=== PATIENT | female | born 1980 | race American Indian/Alaskan Native ===

== ENCOUNTER 2016-10-15 20:01 | Emergency (ER) | payer MEDICAID ==
[2016-10-15 21:37] LABS: Hematocrit 39.2 % (30.3-42.9); Hemoglobin 12.8 gm/dl (10.1-14.3); Mean Corpuscular HGB Conc 33 % (30-34); Mean Corpuscular Hemoglobin 30 pg (28-32); Mean Corpuscular Volume 93 fl (79-97); Platelet Count 275 K/mm3 (140-440); Red Blood Count 4.22 M/mm3 (3.65-5.03); Red Cell Distribution Width 13.8 % (13.2-15.2); White Blood Count 10.4 K/mm3 (4.5-11.0)
[2016-10-15 21:52] LABS: Alanine Aminotransferase 15 units/L (7-56); Albumin 4.2 g/dL (3.9-5); Albumin/Globulin Ratio 1.4 %; Alkaline Phosphatase 75 units/L (35-129); Anion Gap 16 mmol/L; BUN/Creatinine Ratio 8.75; Bilirubin,Total 0.3 mg/dL (0.1-1.2); Blood Urea Nitrogen 7 mg/dL (7-17); Calcium 9.1 mg/dL (8.4-10.2); Carbon Dioxide 26 mmol/L (22-30); Chloride 98.2 mmol/L (98-107); Glucose 92 mg/dL (65-100); Lipase 45 units/L (13-60); Potassium 3.6 mmol/L (3.6-5.0); Sodium 137 mmol/L (137-145); Total Protein 7.3 g/dL (6.3-8.2)
[2016-10-15 22:10] LABS: Blastocytes % (Manual) 0 %
[2016-10-15 22:11] LABS: Basophils % (Manual) 0 % (0.0-1.8); Eosinophils % (Manual) 0 % (0.0-4.3)
[2016-10-15 22:12] LABS: Diff Status Complete; RBC Morphology Normal
[2016-10-16 01:47] LABS: Bacteria,Urine 1+ /HPF (Negative); Bilirubin,Urine NEG (Negative); Blood,Urine NEG (Negative); Ketones,Urine NEG (Negative); Leukocyte Esterase,Urine NEG (Negative); Mucus,Urine FEW /HPF; Nitrite,Urine NEG (Negative); Protein,Urine <15 mg/dL mg/dL (Negative); Urobilinogen,Urine < 2.0 mg/dL (<2.0)
[2016-10-16] MEDS ORDERED: DUONEB 0.5 MG-3 MG/3 ML SOLN IH ONE (07:08)
[2016-10-16] MEDS ORDERED: DELTASONE PO ONE (07:09)
--- NOTE | 2016-10-16 07:11 | Emergency Department Report ---
HPI - General Chief Complaint: Abdominal Pain Time Seen by Provider: 10/16/16 06:42 - HPI HPI: This is a 36-year-old Afro-[place] female presents to the emergency Department with a 24-hour history of some right upper quadrant abdominal pain, chest tightness and a mixed dry and productive cough. Patient says that she woke up yesterday with a "cold." She has a history of asthma so she tried her breathing machine a few times but it did not improve her symptoms and she started to develop some paresthesias so she came in to be seen. The patient drove herself in. She did not take anything else for symptoms prior to presentation. She also has a history of GERD but denies any history of OR, CVA , PE/DVT. No recent travel or sick contacts at home. Her primary care doctor is [facility]. ED Past Medical Hx - Past Medical History Hx GERD: Yes Hx Psychiatric Treatment: Yes (Schizophrenia) Hx Asthma: Yes Hx HIV: No Additional medical history: Carpal Tunnel Symdrome, H.pylori, - Surgical History Additional Surgical History: Hysterectomy, C-sections X4 - Social History Smoking Status: Current Every Day Smoker Substance Use Type: Alcohol - Medications Home Medications: Home Medications Medication Instructions Recorded Confirmed Last Taken Type Flonase 1 spray INNOSTRIL DAILY 03/10/15 03/19/15 03/14/15 History Flovent 220 MCG/PUFF HFA 1 inhalation INHALATION BID 03/10/15 03/19/15 03/14/15 History Omeprazole 1 tab PO DAILY 03/10/15 03/19/15 03/18/15 History Prednisone 1 tab PO DAILY 03/10/15 03/19/15 03/18/15 History Tylenol/Codeine 120-12 mg/5 ml 1 tab PO PRN PRN 03/10/15 03/19/15 03/18/15 History Levofloxacin [Levaquin TAB] 500 mg PO QDAY #10 tablet 03/19/15 Unknown Rx Omeprazole [PriLOSEC] 40 mg PO QDAY #30 cap 03/19/15 Unknown Rx metroNIDAZOLE [Flagyl TAB] 500 mg PO Q8HR #30 tab 03/19/15 Unknown Rx Naproxen [Naprosyn TAB] 500 mg PO BID PRN #14 tablet 07/11/16 Unknown Rx Ondansetron [Zofran Odt] 4 mg PO Q8H PRN #10 tab.rapdis 07/11/16 Unknown Rx predniSONE [Deltasone] 20 mg PO QDAY #5 tab 10/16/16 Unknown Rx ED Review of Systems ROS: Stated complaint: CHEST PAIN Other details as noted in HPI Comment: All other systems reviewed and negative Constitutional: denies: chills, fever Eyes: denies: eye pain, eye discharge, vision change ENT: denies: ear pain, throat pain Respiratory: cough, wheezing Cardiovascular: chest pain. denies: palpitations Gastrointestinal: abdominal pain. denies: nausea, vomiting Genitourinary: denies: urgency, dysuria, discharge Musculoskeletal: denies: back pain, joint swelling, arthralgia Skin: denies: rash, lesions Neurological: denies: headache, weakness, paresthesias Physical Exam - Physical Exam Vital Signs: Vital Signs 10/15/16 20:35 Temperature 98.5 F Pulse Rate 86 Respiratory 18 Rate Blood Pressure 121/85 Blood Pressure 121/85 [Left] O2 Sat by Pulse 100 Oximetry Physical Exam: GENERAL: The patient is well-developed well-nourished. HEENT: Normocephalic. Atraumatic. Extraocular motions are intact. Patient has moist mucous membranes. Pupils equal reactive to light bilaterally. NECK: Supple. Trachea is midline. CHEST/LUNGS: Mild wheezing throughout the chest. A dry wheezing cough heard during examination. No tachypnea or accessory muscle use. There is no respiratory distress noted. HEART/CARDIOVASCULAR: Regular. There is no tachycardia. There is no gallop rub or murmur. ABDOMEN: Abdomen is soft. There is some right upper quadrant and epigastric tenderness to palpation. No guarding rebound tenderness. No peritoneal signs. Patient has normal bowel sounds. There is no abdominal distention. SKIN: There is no rash. There is no edema. There is no diaphoresis. NEURO: The patient is awake, alert, and oriented. The patient is cooperative. The patient has no focal neurologic deficits. The patient has normal speech. MUSCULOSKELETAL: There is no tenderness or deformity. There is no limitation range of motion. There is no evidence of acute injury. Cap refill less than 2 seconds. ED Course Vital Signs 10/15/16 20:35 Temperature 98.5 F Pulse Rate 86 Respiratory 18 Rate Blood Pressure 121/85 Blood Pressure 121/85 [Left] O2 Sat by Pulse 100 Oximetry ED Medical Decision Making - Lab Data Result diagrams: 10/15/16 21:06 10/15/16 21:06 - EKG Data -: EKG Interpreted by Me EKG shows normal: sinus rhythm, axis, intervals, QRS complexes, ST-T waves Rate: normal - EKG Data When compared to previous EKG there are: previous EKG unavailable Interpretation: normal EKG - Radiology Data Radiology results: report reviewed, image reviewed interpreted by me: Chest x-ray did not show any acute process. Heart is normal shape and size. No effusions. No pneumothorax. No signs of pneumonia seen. Abdominal x-ray does not show any acute process. Right upper quadrant abdominal ultrasound is a normal examination. - Medical Decision Making 36-year-old female presents to the emergency department with some right upper quadrant abdominal discomfort and some chest tightness that goes along with a cough. On examination the patient has some mild wheezing throughout the chest and a wheezing cough heard. She is tender to palpation in the right upper quadrant but there is no guarding or peritoneal signs. Patient's labs been unremarkable including negative troponins, no leukocytosis, normal belly labs, no urinary tract infection and the patient is not . Abdominal and chest x-rays were done that did not show any acute process. Due to the location of her abdominal discomfort, a right upper quadrant ultrasound was completed that resulted as a normal examination. Patient was given a breathing treatment and a dose of steroids. Upon reevaluation she is improved. Patient is resting comfortably. Vital signs stable throughout her ED course including being afebrile, no tachypnea and no hypoxia. Patient has a primary care for follow-up at [facility]. She will be discharged with a few doses of steroids for her bronchitis. She will return to the ER with any worsening of her symptoms or any acute distress. - Differential Diagnosis bronchitis, asthma, pneumonia, OR, cholecystitis, Critical Care Time: No Critical care attestation.: If time is entered above; I have spent that time in minutes in the direct care of this critically ill patient, excluding procedure time. ED Disposition Clinical Impression: Bronchitis Abdominal pain Qualifiers: Abdominal location: right upper quadrant Qualified Code(s): R10.11 - Right upper quadrant pain Disposition: DISCHARGED TO HOME OR SELFCARE Is pt being admited?: No Condition: Stable Instructions: Abdominal Pain (ED), Acute Bronchitis (ED) Additional Instructions: Please follow-up with your primary care physician at [facility] in the next few days. Return to the emergency department with any worsening of your symptoms or any acute distress. Prescriptions: predniSONE [Deltasone] 20 mg PO QDAY #5 tab Referrals: PRIMARY CARE, [Primary Care Provider] - 3-5 Days Time of Disposition: 10:09
--- NOTE | 2016-10-16 08:29 | Ultrasound Report ---
FINAL REPORT EXAM: US ABDOMEN LIMITED HISTORY: RUQ abd pain TECHNIQUE: Right upper quadrant ultrasound PRIORS: None. FINDINGS: Examination of the gallbladder demonstrates no evidence for gallstones, distention, wall thickening, or pericholecystic fluid. No sonographic Martinez's sign is elicited. Common bile duct is normal in diameter measuring 3.9 mm. The liver is normal and homogeneous in echogenicity without focal abnormality or intrahepatic biliary dilatation. The pancreas is normal in thickness without focal abnormality or pancreatic duct dilatation. The right kidney is normal in size without calculi or hydronephrosis. The right kidney measures 11.0 cm in craniocaudal length. Aorta is normal in caliber measuring 1.4 cm in diameter in the proximal abdominal aorta. IMPRESSION: Normal right upper quadrant ultrasound.
--- NOTE | 2016-10-16 09:20 | XRay Report ---
Single view chest: History: Cough. Findings: Normal cardiomediastinal silhouette. Trachea is midline. No consolidation, pneumothorax or pleural effusion. Impression: No acute cardiopulmonary findings.
--- NOTE | 2016-10-16 09:21 | XRay Report ---
Abdomen 2 views: History: Abdominal pain. Findings: No free intraperitoneal air. No bowel distention or wall thickening. No radiopaque calculus or abnormal calcification. Stool in colon. Impression: Stool in colon. No bowel obstruction.
[2016-10-16 10:15] VITALS: BP 115/78
== END 2016-10-16 10:30 | disposition home or self-care (01) ==
LOC: ED 20:01
DX: J40 Bronchitis, not specified as acute or chronic (principal); R10.11 Right upper quadrant pain; K21.9 Gastro-esophageal reflux disease without esophagitis; F20.9 Schizophrenia, unspecified; J45.909 Unspecified asthma, uncomplicated; G56.00 Carpal tunnel syndrome, unspecified upper limb; I25.2 Old myocardial infarction; I63.9 Cerebral infarction, unspecified; F17.200 Nicotine dependence, unspecified, uncomplicated; Z86.718 Personal history of other venous thrombosis and embolism
CPT/HCPCS: 36415; 71010; 74020; 76705; 80053; 81001; 81025; 83690; 84484; 85007; 85025; 93005; 93010; 94640; 99284; J7512

== ENCOUNTER 2016-10-24 12:28 | Emergency (ER) | payer MEDICAID ==
[2016-10-24 14:04] VITALS: BP 138/107
== END 2016-10-24 17:58 | disposition left against medical advice (07) ==
LOC: ED 12:28
DX: M79.602 Pain in left arm (principal); V89.2XXA Person injured in unspecified motor-vehicle accident, traffic, initial encounter; Y93.9 Activity, unspecified; Y92.410 Unspecified street and highway as the place of occurrence of the external cause; Y99.9 Unspecified external cause status; Z53.21 Procedure and treatment not carried out due to patient leaving prior to being seen by health care provider

== ENCOUNTER 2018-02-11 19:03 | Emergency (ER) | payer MEDICAID ==
[2018-02-11 19:30] VITALS: BP 144/90
--- NOTE | 2018-02-11 20:12 | XRay Report ---
FINAL REPORT EXAM: XR FOOT 3+V LT HISTORY: Left foot pain TECHNIQUE: 3 views Left foot PRIORS: None. FINDINGS: No fracture or dislocation identified. Joint spaces are within normal limits. No erosive bony change identified. No bony lesions are identified. IMPRESSION: Negative foot series
--- NOTE | 2018-02-11 22:02 | Emergency Department Report ---
ED Lower Extremity HPI - General Chief Complaint: Extremity Injury, Lower Stated Complaint: LEFT FOOT PAIN Time Seen by Provider: 02/11/18 21:52 Source: patient Mode of arrival: Ambulatory Limitations: No Limitations - History of Present Illness Initial Comments: This is 37-year-old female here report that she is having left foot pain it's been ongoing for 2 weeks. She said it is progressively getting worse. Pain is located to plantar aspect of foot starting note heel and going up to still and she said sometimes radiating to her left knee. Denies any injury. Patient says she has a history of carpal tunnel, gout. She does have a primary care doctor who she says that some lab work and told her that this was not gout. She says she is on gabapentin for carpal tunnel but it's not helping her foot pain. Pain is tingly and aching. Pain is 8 out of 10 worse with walk-in and weightbearing better with rest. Gabapentin taking without any relief. MD Complaint: other (left foot pain) Onset/Timin -: week(s) Injury: Foot: Left (left foot pain) Type of Injury: unknown Place: home Severity: severe Severity scale (0 -10): 8 Improves With: rest Context: other (unknown) Associated Symptoms: tingling, ambulatory. denies: snap/pop sensation, swelling , numbness, unable to bear weight, able to partially bear weight Treatments Prior to Arrival: other (gabapentin) - Related Data Home Medications Medication Instructions Recorded Confirmed Last Taken Flovent 220 MCG/PUFF HFA 2 inhalation INHALATION BID 03/10/15 02/11/18 03/14/15 Gabapentin 300 mg PO QID 02/11/18 02/11/18 Unknown Indocin 25 mg PO TID 02/11/18 02/11/18 Unknown Verapamil 180 mg PO DAILY 02/11/18 02/11/18 Unknown ZyrTEC 10 mg PO DAILY 02/11/18 02/11/18 Unknown Previous Rx's Medication Instructions Recorded Last Taken Type Ibuprofen [Motrin] 600 mg PO Q8H PRN #15 tablet 02/11/18 Unknown Rx traMADol [Ultram] 50 mg PO Q4HR PRN #12 tablet 02/11/18 Unknown Rx Allergies Allergy/AdvReac Type Severity Reaction Status Date / Time latex Allergy Swelling Verified 03/19/15 10:25 oseltamivir [From Tamiflu] Allergy Hives Verified 02/11/18 19:30 penicillin Allergy Anaphylaxis Verified 03/10/15 15:08 ED Review of Systems ROS: Stated complaint: LEFT FOOT PAIN Other details as noted in HPI Constitutional: denies: chills, fever Respiratory: denies: cough, shortness of breath, SOB with exertion, SOB at rest , wheezing Cardiovascular: denies: chest pain, palpitations, edema, syncope Gastrointestinal: denies: nausea, vomiting Genitourinary: denies: urgency, dysuria, discharge Musculoskeletal: arthralgia. denies: back pain, joint swelling, myalgia Skin: denies: rash, lesions Neurological: paresthesias. denies: headache, weakness, numbness, confusion, abnormal gait, vertigo ED Past Medical Hx - Past Medical History Previous Medical History?: Yes Hx Hypertension: Yes Hx GERD: Yes Hx Psychiatric Treatment: Yes (Schizophrenia) Hx Asthma: Yes Hx HIV: No Additional medical history: Carpal Tunnel Syndrome, H.pylori,GOUT - Surgical History Past Surgical History?: Yes Additional Surgical History: Hysterectomy, C-sections X4 - Family History Family history: hypertension - Social History Smoking Status: Current Every Day Smoker Substance Use Type: None - Medications Home Medications: Home Medications Medication Instructions Recorded Confirmed Last Taken Type Flovent 220 MCG/PUFF HFA 2 inhalation INHALATION BID 03/10/15 02/11/18 03/14/15 History Gabapentin 300 mg PO QID 02/11/18 02/11/18 Unknown History Ibuprofen [Motrin] 600 mg PO Q8H PRN #15 tablet 02/11/18 Unknown Rx Indocin 25 mg PO TID 02/11/18 02/11/18 Unknown History Verapamil 180 mg PO DAILY 02/11/18 02/11/18 Unknown History ZyrTEC 10 mg PO DAILY 02/11/18 02/11/18 Unknown History traMADol [Ultram] 50 mg PO Q4HR PRN #12 tablet 02/11/18 Unknown Rx ED Physical Exam - General Limitations: No Limitations General appearance: alert, in no apparent distress - Head Head exam: Present: atraumatic, normocephalic, normal inspection - Eye Eye exam: Present: normal appearance, PERRL, EOMI Pupils: Present: normal accommodation - ENT ENT exam: Present: normal exam, normal orophraynx, mucous membranes moist - Neck Neck exam: Present: normal inspection, full ROM. Absent: tenderness, lymphadenopathy - Respiratory Respiratory exam: Present: normal lung sounds bilaterally. Absent: respiratory distress, chest wall tenderness - Cardiovascular Cardiovascular Exam: Present: regular rate, normal rhythm, normal heart sounds. Absent: systolic murmur, diastolic murmur - Extremities Exam Extremities exam: Present: normal inspection, full ROM, normal capillary refill , other (no clubbing, cyanosis or edema. Pulses + extremities and no neurovascular compromise.). Absent: tenderness, pedal edema, joint swelling, calf tenderness - Back Exam Back exam: Present: normal inspection - Neurological Exam Neurological exam: Present: alert, oriented X3, normal gait, reflexes normal, other (no focal neurological deficit). Absent: motor sensory deficit - Psychiatric Psychiatric exam: Present: normal affect, normal mood - Skin Skin exam: Present: warm, dry, intact, normal color. Absent: rash ED Course Vital Signs 02/11/18 19:23 Temperature 98.8 F Pulse Rate 74 Respiratory 18 Rate Blood Pressure 144/90 O2 Sat by Pulse 100 Oximetry - Reevaluation(s) Reevaluation #1: 02/11/18 22:43 Patient did not want much of pain in she is here by herself. Pain had subsided since she's been weighed in. X-rays negative for fracture dislocation or soft tissue swelling. ED Lower Extremity MDM - Radiology Data Radiology results: report reviewed X-ray 3 views left foot dictated by radiologist and report reviewed by myself. Please see report below. Patient: NAHOMY LIN MR#: [id number] : 1980 Acct:[id number] Age/Sex: 37 / F ADM Date: 02/11/18 Loc: ED Attending Dr: Ordering Physician: ED MD FATMATA Date of Service: 02/11/18 Procedure(s): XR foot 3+V LT Accession Number(s): [id number] cc: ED MD FATMATA Fluoro Time In Minutes: FINAL REPORT EXAM: XR FOOT 3+V LT HISTORY: Left foot pain TECHNIQUE: 3 views Left foot PRIORS: None. FINDINGS: No fracture or dislocation identified. Joint spaces are within normal limits. No erosive bony change identified. No bony lesions are identified. IMPRESSION: Negative foot series Transcribed By: LICHA Dictated By: CALVIN VELEZ MD Electronically Authenticated By: CALVIN VELEZ MD Signed Date/Time: 02/11/182007 DD/ 07 TD/TT: 02/11/182007 - Medical Decision Making Patient presents to emergency room with left foot pain for over 2 weeks. She was given incentive by myself. Left foot exam normal. Neurovascular check is normal. Patient had left foot x-ray 2 views which was dictated per radiologist report reviewed by myself. X-ray without any abnormal findings. This is communicated to patient and she voiced understanding. I discussed diagnosis and treatment plan with her and she was understanding. Her pain had subsided without any pain medication while waiting for x-ray results emergency room. She did not want any Motrin because she said that does not work and patient is here by herself. Patient was giving Zofran for the nausea and vomiting. Patient with plantar fasciitis, arthralgia left foot. Patient educated on Rice therapy, medication, diagnosis and treatment plan and she voiced understanding. For all to care asst, Prescription given to patient prior to discharge for Motrin and Ultram. Patient discharged home in stable condition, vital signs are stable and she is afebrile. She is stable. Patient instructed to follow up with her primary care in 2-3 days and care asst in 2-3 days and she voiced understanding. - Differential Diagnosis foot fracture, contusion, sprain, strain, plantar fasciitis Critical care attestation.: If time is entered above; I have spent that time in minutes in the direct care of this critically ill patient, excluding procedure time. ED Disposition Clinical Impression: Left foot pain, Plantar fasciitis of left foot Disposition: DC- TO HOME OR SELFCARE Is pt being admited?: No Does the pt Need Aspirin: No Condition: Stable Instructions: Arthralgia (ED), How to Give a Foot Massage (GEN), Plantar Fasciitis (ED), RICE Therapy (ED) Additional Instructions: Please follow up with care asst as discussed Take Ultram for severe pain but these do not drive or operate heavy machinery while taking this medication Take Motrin as an anti-inflammatory. See discharge instruction in Rice therapy Prescriptions: Ibuprofen [Motrin] 600 mg PO Q8H PRN #15 tablet PRN Reason: mild to moderate pain traMADol [Ultram] 50 mg PO Q4HR PRN #12 tablet PRN Reason: severe pain Referrals: PRIMARY CARE, [Primary Care Provider] - 02/14/18 HORTENSIA MCCARTHY DPM [Staff Physician] - 2-3 Days Forms: Work/School Release Form(ED)
== END 2018-02-11 22:39 | disposition home or self-care (01) ==
LOC: ED 19:03
DX: M72.2 Plantar fascial fibromatosis (principal); I10 Essential (primary) hypertension; K21.9 Gastro-esophageal reflux disease without esophagitis; F20.9 Schizophrenia, unspecified; J45.909 Unspecified asthma, uncomplicated; M10.9 Gout, unspecified; F17.200 Nicotine dependence, unspecified, uncomplicated; G56.00 Carpal tunnel syndrome, unspecified upper limb; Z90.710 Acquired absence of both cervix and uterus; Z91.040 Latex allergy status; Z88.0 Allergy status to penicillin; Z88.8 Allergy status to other drugs, medicaments and biological substances
CPT/HCPCS: 99283

== ENCOUNTER 2019-02-10 09:25 | Emergency (ER) | payer MEDICAID ==
[2019-02-10 10:05] LABS: Basophils % (Auto) 0.5 % (0.0-1.8); Eosinophils # (Auto) 0.1 K/mm3 (0.0-0.4); Hematocrit 38.4 % (30.3-42.9); Lymphocytes # (Auto) 2.6 K/mm3 (1.2-5.4); Lymphocytes % (Auto) 39.8 % (13.4-35.0); Mean Corpuscular HGB Conc 34 % (30-34); Mean Corpuscular Volume 95 fl (79-97); Monocytes # (Auto) 0.3 K/mm3 (0.0-0.8); Monocytes % (Auto) 4.9 % (0.0-7.3); Platelet Count 268 K/mm3 (140-440); Red Blood Count 4.06 M/mm3 (3.65-5.03); Red Cell Distribution Width 13.5 % (13.2-15.2)
[2019-02-10] MEDS ORDERED: TORADOL IV ONE (10:15)
[2019-02-10] MEDS ORDERED: NACL 0.9% 1000 ML 1,000 ML IV ONE (10:15)
[2019-02-10] MEDS ORDERED: PEPCID IV ONE (10:15)
[2019-02-10] MEDS ORDERED: ZOFRAN IV ONE (10:15)
[2019-02-10 10:26] LABS: Alanine Aminotransferase 11 units/L (7-56); Albumin 4.2 g/dL (3.9-5); BUN/Creatinine Ratio 9; Blood Urea Nitrogen 6 mg/dL (7-17); Calcium 9.3 mg/dL (8.4-10.2); Hemolysis Index 9
--- NOTE | 2019-02-10 10:30 | Emergency Department Report ---
ED Abdominal Pain HPI - General Chief Complaint: Abdominal Pain Stated Complaint: BLACK STOO/FEVER/STOMACH PAIN Time Seen by Provider: 02/10/19 10:09 Source: patient Mode of arrival: Ambulatory Limitations: No Limitations - History of Present Illness Initial Comments: Ms. Hewitt is a 38 yo female with hx of H. Pylori, HTN, asthma, GERD, HTN, who presents with abdominal pain, bloating, heartburn for several days. She has had dark stools after PeptoBismol use. Crampy diffuse pain located in the epigastric, RLQ, RLQ region. +Loose stools. She admits to noncompliance with HTN medications. PCP [facility] Personal GI specialist Dr. Hernandez REYEZ Complaint: abdominal pain -: Gradual, days(s) (2-3) Location: RUQ, RLQ, epigastric Severity: moderate Severity scale (0 -10): 7 Quality: cramping Consistency: constant Improves With: nothing Worsens With: nothing Associated Symptoms: diarrhea - Related Data Home Medications Medication Instructions Recorded Confirmed Last Taken Flovent 220 MCG/PUFF HFA 2 inhalation INHALATION BID 03/10/15 02/11/18 03/14/15 Gabapentin 300 mg PO QID 02/11/18 02/11/18 Unknown Indocin 25 mg PO TID 02/11/18 02/11/18 Unknown Verapamil 180 mg PO DAILY 02/11/18 02/11/18 Unknown ZyrTEC 10 mg PO DAILY 02/11/18 02/11/18 Unknown Previous Rx's Medication Instructions Recorded Last Taken Type Ibuprofen [Motrin] 600 mg PO Q8H PRN #15 tablet 02/11/18 Unknown Rx traMADol [Ultram] 50 mg PO Q4HR PRN #12 tablet 02/11/18 Unknown Rx amLODIPine [Norvasc] 5 mg PO DAILY 30 Days #30 tab 02/10/19 Unknown Rx Allergies Allergy/AdvReac Type Severity Reaction Status Date / Time latex Allergy Swelling Verified 03/19/15 10:25 oseltamivir [From Tamiflu] Allergy Hives Verified 02/11/18 19:30 penicillin Allergy Anaphylaxis Verified 03/10/15 15:08 ED Review of Systems ROS: Stated complaint: BLACK STOO/FEVER/STOMACH PAIN Other details as noted in HPI Comment: All other systems reviewed and negative Constitutional: denies: fever, malaise Respiratory: denies: cough Cardiovascular: denies: chest pain ED Past Medical Hx - Past Medical History Previous Medical History?: Yes Hx Hypertension: Yes Hx GERD: Yes Hx Psychiatric Treatment: Yes (Schizophrenia) Hx Asthma: Yes Hx HIV: No Additional medical history: Carpal Tunnel Syndrome, H.pylori,GOUT - Surgical History Past Surgical History?: Yes Additional Surgical History: Hysterectomy, C-sections X4 - Social History Smoking Status: Current Every Day Smoker Substance Use Type: Alcohol - Medications Home Medications: Home Medications Medication Instructions Recorded Confirmed Last Taken Type Flovent 220 MCG/PUFF HFA 2 inhalation INHALATION BID 03/10/15 02/11/18 03/14/15 History Gabapentin 300 mg PO QID 02/11/18 02/11/18 Unknown History Ibuprofen [Motrin] 600 mg PO Q8H PRN #15 tablet 02/11/18 Unknown Rx Indocin 25 mg PO TID 02/11/18 02/11/18 Unknown History Verapamil 180 mg PO DAILY 02/11/18 02/11/18 Unknown History ZyrTEC 10 mg PO DAILY 02/11/18 02/11/18 Unknown History traMADol [Ultram] 50 mg PO Q4HR PRN #12 tablet 02/11/18 Unknown Rx amLODIPine [Norvasc] 5 mg PO DAILY 30 Days #30 tab 02/10/19 Unknown Rx ED Physical Exam - General Limitations: No Limitations General appearance: alert, in no apparent distress - Head Head exam: Present: atraumatic, normocephalic - Eye Eye exam: Present: normal appearance - ENT ENT exam: Present: mucous membranes moist - Neck Neck exam: Present: normal inspection - Respiratory Respiratory exam: Present: normal lung sounds bilaterally. Absent: respiratory distress, wheezes, rales, rhonchi - Cardiovascular Cardiovascular Exam: Present: regular rate, normal rhythm, normal heart sounds. Absent: systolic murmur, diastolic murmur, rubs, gallop - GI/Abdominal GI/Abdominal exam: Present: soft, normal bowel sounds. Absent: distended, tenderness, guarding, rebound - Extremities Exam Extremities exam: Present: normal inspection - Back Exam Back exam: Present: normal inspection - Neurological Exam Neurological exam: Present: alert, oriented X3 - Psychiatric Psychiatric exam: Present: normal affect, normal mood. Absent: depressed, agitated, anxious, manic, homicidal ideation, suicidal ideation - Skin Skin exam: Present: warm, dry, intact, normal color. Absent: rash ED Course Vital Signs 02/10/19 02/10/19 02/10/19 09:31 10:21 10:44 Temperature 98.4 F 98.8 F Pulse Rate 80 78 Respiratory 20 18 18 Rate Blood Pressure 189/116 Blood Pressure 179/117 [Left] O2 Sat by Pulse 100 100 Oximetry ED Medical Decision Making - Lab Data Result diagrams: 02/10/19 09:44 02/10/19 09:44 Laboratory Results - last 24 hr 02/10/19 02/10/19 02/10/19 09:44 09:44 09:44 WBC 6.6 RBC 4.06 Hgb 13.0 Hct 38.4 MCV 95 MCH 32 MCHC 34 RDW 13.5 Plt Count 268 Lymph % (Auto) 39.8 H Hale % (Auto) 4.9 Eos % (Auto) 2.0 Baso % (Auto) 0.5 Lymph # 2.6 Hale # 0.3 Eos # 0.1 Baso # 0.0 Seg Neutrophils % 52.8 Seg Neutrophils # 3.5 Sodium 140 Potassium 3.9 Chloride 101.1 Carbon Dioxide 28 Anion Gap 15 BUN 6 L Creatinine 0.7 Estimated GFR > 60 BUN/Creatinine Ratio 9 Glucose 93 Calcium 9.3 Total Bilirubin 0.30 AST 15 ALT 11 Alkaline Phosphatase 83 Total Protein 7.4 Albumin 4.2 Albumin/Globulin Ratio 1.3 HCG, Qual Negative Urine Color Urine Turbidity Urine pH Ur Specific Clare Urine Protein Urine Glucose (UA) Urine Ketones Urine Blood Urine Nitrite Urine Bilirubin Urine Urobilinogen Ur Leukocyte Esterase Urine WBC (Auto) Urine RBC (Auto) U Epithel Cells (Auto) Urine Mucus 02/10/19 10:09 WBC RBC Hgb Hct MCV MCH MCHC RDW Plt Count Lymph % (Auto) Hale % (Auto) Eos % (Auto) Baso % (Auto) Lymph # Hale # Eos # Baso # Seg Neutrophils % Seg Neutrophils # Sodium Potassium Chloride Carbon Dioxide Anion Gap BUN Creatinine Estimated GFR BUN/Creatinine Ratio Glucose Calcium Total Bilirubin AST ALT Alkaline Phosphatase Total Protein Albumin Albumin/Globulin Ratio HCG, Qual Urine Color Yellow Urine Turbidity Clear Urine pH 6.0 Ur Specific Clare 1.009 Urine Protein <15 mg/dl Urine Glucose (UA) Neg Urine Ketones Neg Urine Blood Neg Urine Nitrite Neg Urine Bilirubin Neg Urine Urobilinogen < 2.0 Ur Leukocyte Esterase Neg Urine WBC (Auto) < 1.0 Urine RBC (Auto) 3.0 U Epithel Cells (Auto) 3.0 Urine Mucus Few - Radiology Data Radiology results: report reviewed CT abdomen and pelvis no acute process appendix not visualized - Medical Decision Making Abdominal pain without signs of peritonitis. No fever. Normal white count. No acute process on CT abdomen and pelvis without contrast. No tenderness on exam. Differential diagnosis includes IBS, peptic ulcer disease, food poisoning. She'll follow with her personal GI physician Dr. Montiel. She also follow up with her [place] physician for pressure control. Hypertension due to noncompliance. I have prescribed amlodipine. Critical care attestation.: If time is entered above; I have spent that time in minutes in the direct care of this critically ill patient, excluding procedure time. ED Disposition Clinical Impression: Hypertensive urgency, Acute abdominal pain, History of Helicobacter pylori infection Disposition: DC- TO HOME OR SELFCARE Is pt being admited?: No Does the pt Need Aspirin: No Condition: Stable Instructions: Abdominal Pain (ED), Chronic Hypertension (ED) Prescriptions: amLODIPine [Norvasc] 5 mg PO DAILY 30 Days #30 tab Referrals: JAE VALLE MD [Primary Care Provider] - 3-5 Days DALIA MONTIEL MD [Staff Physician] - 3-5 Days
[2019-02-10 10:44] LABS: Bilirubin,Urine NEG (Negative); Blood,Urine NEG (Negative); Color,Urine Yellow (Yellow); Protein,Urine <15 mg/dL mg/dL (Negative); Urobilinogen,Urine < 2.0 mg/dL (<2.0)
[2019-02-10 10:52] LABS: Mucus,Urine FEW /HPF; WBC,Urine < 1.0 /HPF (0.0-6.0)
--- NOTE | 2019-02-10 11:48 | Cat Scan Report ---
CT ABDOMEN AND PELVIS WITHOUT CONTRAST INDICATION / CLINICAL INFORMATION: abdominal bloating diarrhea RLQ pain. TECHNIQUE: Axial CT images were obtained through the abdomen and pelvis without IV contrast. All CT scans at [facility] location are performed using CT dose reduction for ALARA by means of automated exposure control. COMPARISON: None available. FINDINGS: LOWER CHEST: No significant abnormality. LIVER: No significant abnormality. GALLBLADDER: No significant abnormality. Mildly complex cystlike lesion arising from the left ovary t hat measures about 2.8 cm in diameter. BILE DUCTS: No significant abnormality. PANCREAS: No significant abnormality. SPLEEN: No significant abnormality. ADRENALS: No significant abnormality. RIGHT KIDNEY and URETER: No significant abnormality. LEFT KIDNEY and URETER: No significant abnormality. STOMACH and SMALL BOWEL: No significant abnormality. COLON: No significant abnormality. APPENDIX: Not well identified without IV contrast. PERITONEUM: No free fluid. No free air. No fluid collection. LYMPH NODES: No significant adenopathy. AORTA and ARTERIES: No significant abnormality. IVC and VEINS: No significant abnormality. URINARY BLADDER: No significant abnormality. REPRODUCTIVE ORGANS: No significant abnormality. ADDITIONAL FINDINGS: None. SKELETAL SYSTEM: No significant abnormality. IMPRESSION: 1. Appendix not well visualized. See above comments 2. No bowel obstruction 3. Complex 2.8 cm cyst arising from the left ovary. Signer Name: Hamzah Iglesias MD Signed: 02/10/2019 11:44 AM Workstation Name: [id number]
[2019-02-10 13:06] VITALS: BP 161/104
[2019-02-11 20:17] LABS: Bacteria,Urine 1+ /HPF (Negative)
== END 2019-02-10 13:08 | disposition home or self-care (01) ==
LOC: ED 09:25
DX: I16.0 Hypertensive urgency (principal); R10.11 Right upper quadrant pain; R10.13 Epigastric pain; R10.31 Right lower quadrant pain; R19.7 Diarrhea, unspecified; I10 Essential (primary) hypertension; K21.0 Gastro-esophageal reflux disease with esophagitis; F20.9 Schizophrenia, unspecified; J45.909 Unspecified asthma, uncomplicated; F17.200 Nicotine dependence, unspecified, uncomplicated; Z86.19 Personal history of other infectious and parasitic diseases; Z90.710 Acquired absence of both cervix and uterus; Z98.890 Other specified postprocedural states; Z79.899 Other long term (current) drug therapy; Z88.0 Allergy status to penicillin; Z88.8 Allergy status to other drugs, medicaments and biological substances; Z91.040 Latex allergy status
CPT/HCPCS: 36415; 74176; 80053; 81001; 84703; 85025; 96361; 96374; 96375; 99284; J1885; J2405; J7030

== ENCOUNTER 2019-02-12 12:20 | Emergency (ER) | payer OTHER, MEDICAID ==
[2019-02-12 13:03] LABS: Basophils # (Auto) 0.1 K/mm3 (0.0-0.1); Basophils % (Auto) 0.6 % (0.0-1.8); Eosinophils # (Auto) 0.1 K/mm3 (0.0-0.4); Hematocrit 43.5 % (30.3-42.9); Hemoglobin 14.8 gm/dl (10.1-14.3); Lymphocytes # (Auto) 2.9 K/mm3 (1.2-5.4); Lymphocytes % (Auto) 33.1 % (13.4-35.0); Mean Corpuscular HGB Conc 34 % (30-34); Mean Corpuscular Volume 94 fl (79-97); Monocytes # (Auto) 0.4 K/mm3 (0.0-0.8); Platelet Count 324 K/mm3 (140-440); Red Blood Count 4.65 M/mm3 (3.65-5.03); Red Cell Distribution Width 13.8 % (13.2-15.2)
[2019-02-12] MEDS ORDERED: NACL 0.9% 1000 ML 1,000 ML IV ONE (13:09)
[2019-02-12] MEDS ORDERED: MORPHINE IV ONE (13:09)
[2019-02-12] MEDS ORDERED: ZOFRAN IV ONE (13:09)
[2019-02-12 13:23] LABS: BUN/Creatinine Ratio 10; Blood Urea Nitrogen 7 mg/dL (7-17); Calcium 9.7 mg/dL (8.4-10.2); Hemolysis Index 4
--- NOTE | 2019-02-12 14:10 | Emergency Department Report ---
ED Abdominal Pain HPI - General Chief Complaint: Abdominal Pain Stated Complaint: N/A/ABD PAIN/DIZZY Time Seen by Provider: 02/12/19 12:40 Source: EMS Mode of arrival: Stretcher Limitations: No Limitations - History of Present Illness Initial Comments: 38-year-old female presents to ED with complaint of abdominal pain 1 week. Patient reports burning epigastric and right upper quadrant pain with associated nausea and vomiting. Patient was seen in the ER for same 2 days ago[address] Had negative CT scan at that time. Patient reports history of similar pain 2 years ago for which she underwent colonoscopy and upper endoscopy, and was diagnosed with H. pylori infection. Patient did follow the GI following her last ER visit, states has an appointment tomorrow with Dr. Montiel. Complaint: abdominal pain -: week(s) (1) Location: RUQ, epigastric Radiation: none Migration to: no migration Severity: moderate Severity scale (0 -10): 10 Quality: aching Consistency: intermittent Improves With: nothing Worsens With: nothing Associated Symptoms: nausea, vomiting. denies: fever - Related Data Home Medications Medication Instructions Recorded Confirmed Last Taken Flovent 220 MCG/PUFF HFA 2 inhalation INHALATION BID 03/10/15 02/11/18 03/14/15 Gabapentin 300 mg PO QID 02/11/18 02/11/18 Unknown Indocin 25 mg PO TID 02/11/18 02/11/18 Unknown Verapamil 180 mg PO DAILY 02/11/18 02/11/18 Unknown ZyrTEC 10 mg PO DAILY 02/11/18 02/11/18 Unknown Previous Rx's Medication Instructions Recorded Last Taken Type Ibuprofen [Motrin] 600 mg PO Q8H PRN #15 tablet 02/11/18 Unknown Rx traMADol [Ultram] 50 mg PO Q4HR PRN #12 tablet 02/11/18 Unknown Rx amLODIPine [Norvasc] 5 mg PO DAILY 30 Days #30 tab 02/10/19 Unknown Rx Dicyclomine [Bentyl] 20 mg PO QID PRN #20 tablet 02/12/19 Unknown Rx Ondansetron [Zofran Odt] 4 mg PO Q8HR PRN #20 tab.rapdis 02/12/19 Unknown Rx traMADol [Ultram] 50 mg PO Q6HR PRN #7 tablet 02/12/19 Unknown Rx Allergies Allergy/AdvReac Type Severity Reaction Status Date / Time latex Allergy Swelling Verified 03/19/15 10:25 oseltamivir [From Tamiflu] Allergy Hives Verified 02/11/18 19:30 penicillin Allergy Anaphylaxis Verified 03/10/15 15:08 ED Review of Systems ROS: Stated complaint: N/A/ABD PAIN/DIZZY Other details as noted in HPI Comment: All other systems reviewed and negative Constitutional: denies: chills, fever Gastrointestinal: abdominal pain, nausea, vomiting ED Past Medical Hx - Past Medical History Hx Hypertension: Yes Hx GERD: Yes Hx Psychiatric Treatment: Yes (Schizophrenia) Hx Asthma: Yes Hx HIV: No Additional medical history: Carpal Tunnel Syndrome, H.pylori,GOUT - Surgical History Additional Surgical History: Hysterectomy, C-sections X4 - Social History Smoking Status: Current Every Day Smoker Substance Use Type: Alcohol, Marijuana - Medications Home Medications: Home Medications Medication Instructions Recorded Confirmed Last Taken Type Flovent 220 MCG/PUFF HFA 2 inhalation INHALATION BID 03/10/15 02/11/18 03/14/15 History Gabapentin 300 mg PO QID 02/11/18 02/11/18 Unknown History Ibuprofen [Motrin] 600 mg PO Q8H PRN #15 tablet 02/11/18 Unknown Rx Indocin 25 mg PO TID 02/11/18 02/11/18 Unknown History Verapamil 180 mg PO DAILY 02/11/18 02/11/18 Unknown History ZyrTEC 10 mg PO DAILY 02/11/18 02/11/18 Unknown History traMADol [Ultram] 50 mg PO Q4HR PRN #12 tablet 02/11/18 Unknown Rx amLODIPine [Norvasc] 5 mg PO DAILY 30 Days #30 tab 02/10/19 Unknown Rx Dicyclomine [Bentyl] 20 mg PO QID PRN #20 tablet 02/12/19 Unknown Rx Ondansetron [Zofran Odt] 4 mg PO Q8HR PRN #20 tab.rapdis 02/12/19 Unknown Rx traMADol [Ultram] 50 mg PO Q6HR PRN #7 tablet 02/12/19 Unknown Rx ED Physical Exam - General Limitations: No Limitations General appearance: alert, in no apparent distress - Head Head exam: Present: atraumatic, normocephalic - Eye Eye exam: Present: normal appearance, PERRL, EOMI - ENT ENT exam: Present: mucous membranes moist - Neck Neck exam: Present: normal inspection - Respiratory Respiratory exam: Present: normal lung sounds bilaterally. Absent: respiratory distress - Cardiovascular Cardiovascular Exam: Present: regular rate, normal rhythm - GI/Abdominal GI/Abdominal exam: Present: soft, tenderness (moderate epigastric tenderness). Absent: distended - Extremities Exam Extremities exam: Present: normal inspection - Neurological Exam Neurological exam: Present: alert, oriented X3 - Psychiatric Psychiatric exam: Present: normal affect, normal mood - Skin Skin exam: Present: warm, dry, intact, normal color ED Course Vital Signs 02/12/19 02/12/19 02/12/19 12:47 12:53 14:39 Temperature 98.2 F Pulse Rate 85 80 Respiratory 18 22 18 Rate Blood Pressure 177/97 Blood Pressure 154/89 [Left] O2 Sat by Pulse 100 96 99 Oximetry ED Medical Decision Making - Lab Data Result diagrams: 02/12/19 12:55 02/12/19 12:55 - EKG Data -: EKG Interpreted by Sc EKG shows normal: sinus rhythm, axis, intervals, QRS complexes, ST-T waves Rate: normal - EKG Data Interpretation: no acute changes - Medical Decision Making - labs normal and unchanged from previous visit - CT normal from previous visit - GI appt tomorrow - rx given for zofran, ultram, bentyl - return precautions given - Differential Diagnosis gastritis, GERD, pancreatitis Critical care attestation.: If time is entered above; I have spent that time in minutes in the direct care of this critically ill patient, excluding procedure time. ED Disposition Clinical Impression: Acute abdominal pain Disposition: DC-01 TO HOME OR SELFCARE Is pt being admited?: No Condition: Stable Instructions: Abdominal Pain (ED) Prescriptions: Dicyclomine [Bentyl] 20 mg PO QID PRN #20 tablet PRN Reason: abdominal pain traMADol [Ultram] 50 mg PO Q6HR PRN #7 tablet PRN Reason: Pain Ondansetron [Zofran Odt] 4 mg PO Q8HR PRN #20 tab.rapdis PRN Reason: Vomiting Referrals: DALIA MONTIEL MD [Staff Physician] - 02/13/19 Time of Disposition: 14:10
[2019-02-12 14:41] VITALS: BP 154/89
== END 2019-02-12 14:54 | disposition home or self-care (01) ==
LOC: ED 12:20
DX: R10.13 Epigastric pain (principal); R10.11 Right upper quadrant pain; R11.2 Nausea with vomiting, unspecified; I10 Essential (primary) hypertension; K21.0 Gastro-esophageal reflux disease with esophagitis; F20.9 Schizophrenia, unspecified; J45.909 Unspecified asthma, uncomplicated; F17.200 Nicotine dependence, unspecified, uncomplicated; F12.90 Cannabis use, unspecified, uncomplicated; Z90.710 Acquired absence of both cervix and uterus; Z98.890 Other specified postprocedural states; Z79.899 Other long term (current) drug therapy; Z88.0 Allergy status to penicillin; Z88.8 Allergy status to other drugs, medicaments and biological substances; Z91.040 Latex allergy status
CPT/HCPCS: 36415; 80048; 83690; 85025; 93005; 93010; 96361; 96374; 96375; 99284; J2270; J2405; J7030

== ENCOUNTER 2019-10-17 10:27 | Emergency (ER) | payer MEDICAID, OTHER ==
[2019-10-17] MEDS ORDERED: ALBUTEROL 2.5 MG/3 ML NEBU IH ONE (11:36)
[2019-10-17] MEDS ORDERED: IPRATROPIUM 0.02% NEBU 2.5 ML IH ONE (11:36)
[2019-10-17] MEDS ORDERED: dexAMETHasone 20 MG/5 ML VIAL IM ONE (11:37)
--- NOTE | 2019-10-17 12:15 | Emergency Department Report ---
ED Asthma HPI - General Chief Complaint: Adult Asthma Stated Complaint: ASTHMA Time Seen by Provider: 10/17/19 11:29 Source: patient Mode of arrival: Ambulatory Limitations: No Limitations - History of Present Illness Initial Comments: This is a 39-year-old female nontoxic, well nourished in appearance, no acute signs of distress presents to the ED with c/o of acute on chronic asthma exacerbation. Patient denies any cough. Patient denies any sick contact. Patient denies any recent travels, long car, recent hospital stays. Patient denies any calf pain or calf tenderness. Patient denies any chest pain, short of breath, fever, chills, nausea, vomiting, hemoptysis, numbness, tingling, headache or stiff neck. Past medical history includes asthma. Allergies includes penicillin, latex and oseltamivir. MD Complaint: "asthma attack", wheezing -: days(s) Asthma History: childhood onset Severity: mild Context: none known Associated Symptoms: none. denies: productive cough, dry cough, fever, chest pain, hemoptysis, leg edema, syncope - Related Data Home Medications Medication Instructions Recorded Confirmed Last Taken Flovent 220 MCG/PUFF HFA 2 inhalation INHALATION BID 03/10/15 02/11/18 03/14/15 Gabapentin 300 mg PO QID 02/11/18 02/11/18 Unknown Indocin 25 mg PO TID 02/11/18 02/11/18 Unknown Verapamil 180 mg PO DAILY 02/11/18 02/11/18 Unknown ZyrTEC 10 mg PO DAILY 02/11/18 02/11/18 Unknown Previous Rx's Medication Instructions Recorded Last Taken Type Ibuprofen [Motrin] 600 mg PO Q8H PRN #15 tablet 02/11/18 Unknown Rx traMADoL [Ultram] 50 mg PO Q4HR PRN #12 tablet 02/11/18 Unknown Rx amLODIPine 5 mg PO DAILY 30 Days #30 tab 02/10/19 Unknown Rx Dicyclomine [Bentyl] 20 mg PO QID PRN #20 tablet 02/12/19 Unknown Rx Ondansetron [Zofran Odt] 4 mg PO Q8HR PRN #20 tab.rapdis 02/12/19 Unknown Rx traMADoL [Ultram] 50 mg PO Q6HR PRN #7 tablet 02/12/19 Unknown Rx Albuterol INH(or & Nicu Only) 2 puff IH QID PRN #8.5 gram 10/17/19 Unknown Rx [ProAir HFA Inhaler] Prednisone [predniSONE 10 mg 10 mg PO .TAPER #1 tab.ds.pk 10/17/19 Unknown Rx (6-Day Pack, 21 Tabs)] Allergies Allergy/AdvReac Type Severity Reaction Status Date / Time latex Allergy Swelling Verified 03/19/15 10:25 oseltamivir [From Tamiflu] Allergy Hives Verified 02/11/18 19:30 penicillin Allergy Anaphylaxis Verified 03/10/15 15:08 ED Review of Systems ROS: Stated complaint: ASTHMA Other details as noted in HPI Constitutional: denies: chills, fever Eyes: denies: eye pain, eye discharge, vision change ENT: denies: ear pain, throat pain Respiratory: shortness of breath, wheezing. denies: cough Cardiovascular: denies: chest pain, palpitations Endocrine: no symptoms reported Gastrointestinal: denies: abdominal pain, nausea, diarrhea Genitourinary: denies: urgency, dysuria, discharge Musculoskeletal: denies: back pain, joint swelling, arthralgia Skin: denies: rash, lesions Neurological: denies: headache, weakness, paresthesias Psychiatric: denies: anxiety, depression Hematological/Lymphatic: denies: easy bleeding, easy bruising ED Past Medical Hx - Past Medical History Previous Medical History?: Yes Hx Hypertension: Yes Hx GERD: Yes Hx Psychiatric Treatment: Yes (Schizophrenia) Hx Asthma: Yes Hx HIV: No Additional medical history: Carpal Tunnel Syndrome, H.pylori,GOUT - Surgical History Past Surgical History?: Yes Additional Surgical History: Hysterectomy, C-sections X4 - Social History Smoking Status: Current Every Day Smoker Substance Use Type: Alcohol, Marijuana - Medications Home Medications: Home Medications Medication Instructions Recorded Confirmed Last Taken Type Flovent 220 MCG/PUFF HFA 2 inhalation INHALATION BID 03/10/15 02/11/18 03/14/15 History Gabapentin 300 mg PO QID 02/11/18 02/11/18 Unknown History Ibuprofen [Motrin] 600 mg PO Q8H PRN #15 tablet 02/11/18 Unknown Rx Indocin 25 mg PO TID 02/11/18 02/11/18 Unknown History Verapamil 180 mg PO DAILY 02/11/18 02/11/18 Unknown History ZyrTEC 10 mg PO DAILY 02/11/18 02/11/18 Unknown History traMADoL [Ultram] 50 mg PO Q4HR PRN #12 tablet 02/11/18 Unknown Rx amLODIPine 5 mg PO DAILY 30 Days #30 tab 02/10/19 Unknown Rx Dicyclomine [Bentyl] 20 mg PO QID PRN #20 tablet 02/12/19 Unknown Rx Ondansetron [Zofran Odt] 4 mg PO Q8HR PRN #20 tab.rapdis 02/12/19 Unknown Rx traMADoL [Ultram] 50 mg PO Q6HR PRN #7 tablet 02/12/19 Unknown Rx Albuterol INH(or & Nicu Only) 2 puff IH QID PRN #8.5 gram 10/17/19 Unknown Rx [ProAir HFA Inhaler] Prednisone [predniSONE 10 mg 10 mg PO .TAPER #1 tab.ds.pk 10/17/19 Unknown Rx (6-Day Pack, 21 Tabs)] ED Physical Exam - General Limitations: No Limitations General appearance: alert, in no apparent distress - Head Head exam: Present: atraumatic, normocephalic - Neck Neck exam: Present: normal inspection, full ROM. Absent: tenderness, meningismus, lymphadenopathy - Respiratory Respiratory exam: Present: wheezes (diffuse). Absent: respiratory distress, rales, rhonchi, stridor, chest wall tenderness, accessory muscle use, decreased breath sounds, prolonged expiratory - Cardiovascular Cardiovascular Exam: Present: regular rate, normal rhythm, normal heart sounds. Absent: irregular rhythm, systolic murmur, diastolic murmur, rubs, gallop - Extremities Exam Extremities exam: Present: normal inspection, full ROM - Back Exam Back exam: Present: normal inspection, full ROM - Neurological Exam Neurological exam: Present: alert, oriented X3, normal gait - Psychiatric Psychiatric exam: Present: normal affect, normal mood - Skin Skin exam: Present: warm, dry, intact, normal color. Absent: rash ED Course Vital Signs 10/17/19 10/17/19 10/17/19 10:29 12:31 13:18 Temperature 97.6 F 98.1 F Pulse Rate 100 H 108 H Respiratory 16 18 18 Rate Blood Pressure 127/82 130/79 O2 Sat by Pulse 100 99 Oximetry - Reevaluation(s) Reevaluation #1: 10/17/19 12:15 Patient is speaking in full sentences with no signs of distress noted. ED Medical Decision Making - Medical Decision Making This is a 39-year-old female that presents with asthma exacerbation. Patient is stable and was examined by me. Chest x-ray has been obtained and dictated by the radiologist within normal limits. Patient is notified of the x-ray report with no questions noted by the patient. Will criteria 0 points for PE. patient did receive breathing treatment and steroids in the ED which patient the symptoms has resolved and subsided. Posttreatment and there is no wheezing upon auscultation. Patient is discharged with albuterol and prednisone. Patient was referred to Follow-up with a primary care doctor in 3-5 days or if symptoms worsen and continue return to emergency room as soon as possible. At time of discharge, the patient does not seem toxic or ill in appearance. No acute signs of distress noted. Patient agrees to discharge treatment plan of care. No further questions noted by the patient. This chart is dictated with using [employer] Critical care attestation.: If time is entered above; I have spent that time in minutes in the direct care of this critically ill patient, excluding procedure time. ED Disposition Clinical Impression: Asthma exacerbation Qualifiers: Asthma severity: mild Asthma persistence: intermittent Qualified Code(s): J45.21 - Mild intermittent asthma with (acute) exacerbation Disposition: DC-01 TO HOME OR SELFCARE Is pt being admited?: No Does the pt Need Aspirin: No Condition: Stable Instructions: Asthma (ED) Additional Instructions: Follow-up with a primary care doctor in 3-5 days or if symptoms worsen and continue return to emergency room as soon as possible. Prescriptions: Prednisone [predniSONE 10 mg (6-Day Pack, 21 Tabs)] 10 mg PO .TAPER #1 tab.ds.pk Albuterol INH(or & Nicu Only) [ProAir HFA Inhaler] 2 puff IH QID PRN #8.5 gram PRN Reason: Shortness Of Breath Referrals: PRIMARY MD SARAH [Primary Care Provider] - 3-5 Days JESSICA DEAN MD [Staff Physician] - 3-5 Days [facility] [Provider Group] - 3-5 Days Forms: Work/School Release Form(ED)
--- NOTE | 2019-10-17 12:59 | XRay Report ---
CHEST PA AND LATERAL VIEWS INDICATION: wheezing. COMPARISON: None. FINDINGS: Support devices: None. Heart: Within normal limits. Lungs/Pleura: No acute pulmonary or pleural findings. IMPRESSION: 1. No acute findings. Signer Name: Randall Lazo MD Signed: 10/17/2019 12:55 PM Workstation Name: [id number]
[2019-10-17 13:21] VITALS: BP 130/79
== END 2019-10-17 13:36 | disposition home or self-care (01) ==
LOC: ED 10:27
DX: J45.901 Unspecified asthma with (acute) exacerbation (principal); I10 Essential (primary) hypertension; K21.9 Gastro-esophageal reflux disease without esophagitis; F20.9 Schizophrenia, unspecified; M10.9 Gout, unspecified; F17.200 Nicotine dependence, unspecified, uncomplicated; F12.90 Cannabis use, unspecified, uncomplicated; Z79.899 Other long term (current) drug therapy; Z88.0 Allergy status to penicillin; Z91.040 Latex allergy status; Z88.8 Allergy status to other drugs, medicaments and biological substances; Z90.710 Acquired absence of both cervix and uterus; Z98.890 Other specified postprocedural states
CPT/HCPCS: 71046; 94640; 96372; 99283; J1100

== ENCOUNTER 2020-01-08 18:12 | Emergency (ER) | payer OTHER ==
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
[2020-01-08 21:26] VITALS: BP 168/98
[2020-01-08] MEDS ORDERED: IBUPROFEN 400 MG TAB PO ONE (21:27)
[2020-01-08] MEDS ORDERED: HYDROcodone/ACETAMINOPHEN 5-325 MG TAB PO ONE (21:27)
== END 2020-01-08 21:45 | disposition home or self-care (01) ==
LOC: ED 18:12
DX: S16.1XXA Strain of muscle, fascia and tendon at neck level, initial encounter (principal); S39.012A Strain of muscle, fascia and tendon of lower back, initial encounter; I10 Essential (primary) hypertension; K21.9 Gastro-esophageal reflux disease without esophagitis; F20.9 Schizophrenia, unspecified; J45.909 Unspecified asthma, uncomplicated; F17.200 Nicotine dependence, unspecified, uncomplicated; F12.10 Cannabis abuse, uncomplicated; Z90.710 Acquired absence of both cervix and uterus; Z98.890 Other specified postprocedural states; Z79.1 Long term (current) use of non-steroidal anti-inflammatories (NSAID); Z79.899 Other long term (current) drug therapy; Z88.0 Allergy status to penicillin; Z88.8 Allergy status to other drugs, medicaments and biological substances; V49.49XA Driver injured in collision with other motor vehicles in traffic accident, initial encounter; Y93.89 Activity, other specified; Y92.410 Unspecified street and highway as the place of occurrence of the external cause; Y99.8 Other external cause status
CPT/HCPCS: 99282

== ENCOUNTER 2020-01-22 19:54 | Emergency (ER) | payer SELFPAY ==
[2020-01-22] MEDS ORDERED: ALBUTEROL 2.5 MG/3 ML NEBU IH ONE (20:17)
[2020-01-22] MEDS ORDERED: methylPREDNISolone Sod Succinate 125 MG/2 ML INJ IV ONE (20:18)
--- NOTE | 2020-01-22 20:19 | Event Note ---
ED Screening Note ED Screening Note: ASTHMA WHEEZING AND SOB IN TRIAGE OUT OF MEDS This initial assessment/diagnostic orders/clinical plan/treatment(s) is/are subject to change based on patients health status, clinical progression and re- assessment by fellow clinical providers in the ED. Further treatment and workup at subsequent clinical providers discretion. Patient/guardian urged not to elope from the ED as their condition may be serious if not clinically assessed and managed. Initial orders include: ASTHMA NOONAN-- TRIPODING AND TACHYPNIC IN TRIAGE-- WHEEZING
[2020-01-22 20:43] LABS: Basophils % (Auto) 0.4 % (0.0-1.8); Eosinophils # (Auto) 0.2 K/mm3 (0.0-0.4); Eosinophils % (Auto) 2.5 % (0.0-4.3); Hematocrit 36.9 % (30.3-42.9); Hemoglobin 13.2 gm/dl (10.1-14.3); Lymphocytes # (Auto) 2.9 K/mm3 (1.2-5.4); Lymphocytes % (Auto) 35.2 % (13.4-35.0); Mean Corpuscular HGB Conc 36 % (30-34); Mean Corpuscular Volume 93 fl (79-97); Monocytes # (Auto) 0.5 K/mm3 (0.0-0.8); Monocytes % (Auto) 5.8 % (0.0-7.3); Platelet Count 297 K/mm3 (140-440); Red Blood Count 3.97 M/mm3 (3.65-5.03); Red Cell Distribution Width 13.9 % (13.2-15.2)
[2020-01-22] MEDS ORDERED: SODIUM CHLORIDE 0.9% 500 ML 500 ML IV ONE (20:46)
[2020-01-22] MEDS ORDERED: IPRATROPIUM 0.02% NEBU 2.5 ML IH ONE (20:46)
--- NOTE | 2020-01-22 20:56 | Emergency Department Report ---
HPI - General Chief Complaint: Dyspnea/Respdistress Time Seen by Provider: 01/22/20 20:14 - HPI HPI: This is a 39-year-old -[place] female presents to the emergency department with complaint of a 4-day history of some wheezing, shortness of breath and a dry cough. The patient is out of medication for her nebulizer and only has a few pumps left in her albuterol inhaler. She was seen by telemedicine by her PCP, through [facility], and was told to go to the emergency department because "he did not like the way I looked with my breathin g." She is a tobacco smoker but denies any illicit drug use. She denies any fever, lower extremity swelling, chest pain, nausea, vomiting or diaphoresis. No recent travel or sick contacts at home. No known exposure to anyone with Covid 19. ED Past Medical Hx - Past Medical History Hx Hypertension: Yes Hx GERD: Yes Hx Psychiatric Treatment: Yes (Schizophrenia) Hx Asthma: Yes Hx HIV: No Additional medical history: Carpal Tunnel Syndrome, H.pylori,GOUT - Surgical History Additional Surgical History: Hysterectomy, C-sections X4 - Social History Smoking Status: Current Every Day Smoker Substance Use Type: Alcohol - Medications Home Medications: Home Medications Medication Instructions Recorded Confirmed Last Taken Type Flovent 220 MCG/PUFF HFA 2 inhalation INHALATION BID 03/10/15 02/11/18 03/14/15 History Gabapentin 300 mg PO QID 02/11/18 02/11/18 Unknown History Ibuprofen [Motrin] 600 mg PO Q8H PRN #15 tablet 02/11/18 Unknown Rx Indocin 25 mg PO TID 02/11/18 02/11/18 Unknown History Verapamil 180 mg PO DAILY 02/11/18 02/11/18 Unknown History ZyrTEC 10 mg PO DAILY 02/11/18 02/11/18 Unknown History traMADoL [Ultram] 50 mg PO Q4HR PRN #12 tablet 02/11/18 Unknown Rx amLODIPine 5 mg PO DAILY 30 Days #30 tab 02/10/19 Unknown Rx Dicyclomine [Bentyl] 20 mg PO QID PRN #20 tablet 02/12/19 Unknown Rx Ondansetron [Zofran Odt] 4 mg PO Q8HR PRN #20 tab.rapdis 02/12/19 Unknown Rx traMADoL [Ultram] 50 mg PO Q6HR PRN #7 tablet 02/12/19 Unknown Rx Cyclobenzaprine [Flexeril] 10 mg PO TID PRN #20 tablet 01/08/20 Unknown Rx HYDROcodone/APAP 5-325 [[place] 1 each PO Q6HR PRN #10 tablet 01/08/20 Unknown Rx 5/325] Ibuprofen [Motrin 400 MG tab] 400 mg PO TID 5 Days #15 tablet 01/08/20 Unknown Rx ALBUTEROL NEB's [Proventil 0.083% 2.5 mg IH TID PRN #1 box 01/22/20 Unknown Rx NEBS] Albuterol INH(or & Nicu Only) 2 puff IH QID PRN #8.5 gram 01/22/20 Unknown Rx [ProAir HFA Inhaler] predniSONE [Deltasone] 20 mg PO BID #8 tab 01/22/20 Unknown Rx ED Review of Systems ROS: Stated complaint: DIFFICULTY IN BREATHING Other details as noted in HPI Comment: All other systems reviewed and negative Constitutional: denies: chills, fever Eyes: denies: eye pain, vision change ENT: denies: ear pain, throat pain Respiratory: cough, shortness of breath, wheezing Cardiovascular: denies: chest pain, palpitations Gastrointestinal: denies: abdominal pain, vomiting Genitourinary: denies: dysuria, discharge Musculoskeletal: denies: back pain, arthralgia Skin: denies: rash, lesions Neurological: denies: headache, weakness Physical Exam - Physical Exam Vital Signs: Vital Signs 01/22/20 01/22/20 19:59 20:43 Temperature 98.5 F 98.2 F Pulse Rate 101 H 94 H Respiratory 20 20 Rate Blood Pressure 148/106 133/99 O2 Sat by Pulse 99 100 Oximetry Physical Exam: GENERAL: The patient is well-developed well-nourished. HENT: Normocephalic. Atraumatic. Patient has moist mucous membranes. EYES: Extraocular motions are intact. NECK: Supple. Trachea is midline. CHEST/LUNGS: Lung sounds are very tight but wheezing is heard throughout the chest. There is some tachypnea but no accessory muscle use. A dry cough is heard during examination. HEART/CARDIOVASCULAR: Regular. There is mild tachycardia. ABDOMEN: Abdomen is soft, nontender. Patient has normal bowel sounds. There is no abdominal distention. SKIN: Skin is warm and dry. NEURO: The patient is awake, alert, and oriented. The patient is cooperative. The patient has no focal neurologic deficits. Normal speech. MUSCULOSKELETAL: There is no tenderness or deformity. There is no evidence of acute injury. ED Course Vital Signs 01/22/20 01/22/20 19:59 20:43 Temperature 98.5 F 98.2 F Pulse Rate 101 H 94 H Respiratory 20 20 Rate Blood Pressure 148/106 133/99 O2 Sat by Pulse 99 100 Oximetry ED Medical Decision Making - Lab Data Result diagrams: 01/22/20 20:24 01/22/20 20:24 - Medical Decision Making This patient presents with a 4-day history of some wheezing, shortness of breath and a dry cough. She has a history of asthma and essentially has been out of her medications. On examination the patient has some wheezing heard but overall the lung sounds are very tight. An IV was placed and the patient was given IV Solu-Medrol and some IV fluid resuscitation. She was then given a breathing treatment with both albuterol and ipratropium. A chest x-ray was done that does not show any pneumonia, pleural effusions, pneumothorax, or any other acute process. Her labs have been unremarkable including CBC, metabolic panel and BNP. Upon reevaluation the patient says she is feeling greatly improved. The bronchospasm has improved as the lung sounds are no longer tight and the patient does have some mild wheezing. Patient does not appear in any respiratory or acute distress. Her vital signs have been stable throughout her ED course including being afebrile and no hypoxia. For all these reasons patient appears safe for discharge home at this time. She has outpatient follow-up with [facility]. She will be placed on a course of steroids and has been given a refill of her albuterol inhaler and nebulizer treatments. She will return to the emergency department with any worsening of her symptoms or any acute distress. Critical Care Time: No Critical care attestation.: If time is entered above; I have spent that time in minutes in the direct care of this critically ill patient, excluding procedure time. ED Disposition Clinical Impression: Asthma exacerbation Qualifiers: Asthma severity: unspecified severity Asthma persistence: unspecified Qualified Code(s): J45.901 - Unspecified asthma with (acute) exacerbation Disposition: DC-01 TO HOME OR SELFCARE Is pt being admited?: No Condition: Stable Instructions: Asthma (ED), How to Stop Smoking (ED) Additional Instructions: Please follow-up with your primary care physician in the next few days. Return to the emergency department with any worsening of your symptoms or any acute distress. Please try and quit smoking. Prescriptions: predniSONE [Deltasone] 20 mg PO BID #8 tab Albuterol INH(or & Nicu Only) [ProAir HFA Inhaler] 2 puff IH QID PRN #8.5 gram PRN Reason: Shortness Of Breath ALBUTEROL NEB's [Proventil 0.083% NEBS] 2.5 mg IH TID PRN #1 box PRN Reason: Wheezing Referrals: JAE VALLE MD [Primary Care Provider] - 3-5 Days PCP, Your [Other] - 2-3 Days Forms: Work/School Release Form(ED) Time of Disposition: 21:53
[2020-01-22 21:03] LABS: Alanine Aminotransferase 8 units/L (7-56); Albumin 4.1 g/dL (3.9-5); BUN/Creatinine Ratio 11; Blood Urea Nitrogen 8 mg/dL (7-17); Calcium 9.4 mg/dL (8.4-10.2); Hemolysis Index 10
--- NOTE | 2020-01-22 21:10 | XRay Report ---
CHEST 2 VIEWS INDICATION: SOB. COMPARISON: 10/17/2019 FINDINGS: Support devices: None. Heart: Within normal limits. Lungs: Bronchovascular markings are prominent No acute air space or interstitial disease. Pleura: No significant pleural effusion. No pneumothorax. Additional findings: None. IMPRESSION: 1. Mild pulmonary edema is a concern Signer Name: Renzo Farah MD Signed: 01/22/2020 9:06 PM Workstation Name: [id number]
[2020-01-22] MEDS ORDERED: POTASSIUM CHLORIDE ER 20 MEQ TAB PO ONE (21:15)
[2020-01-22 22:14] VITALS: BP 134/86
== END 2020-01-22 22:14 | disposition home or self-care (01) ==
LOC: ED 19:54
DX: J45.901 Unspecified asthma with (acute) exacerbation (principal); I10 Essential (primary) hypertension; K21.9 Gastro-esophageal reflux disease without esophagitis; F20.89 Other schizophrenia; F17.200 Nicotine dependence, unspecified, uncomplicated; Z90.710 Acquired absence of both cervix and uterus; Z79.899 Other long term (current) drug therapy; Z88.0 Allergy status to penicillin; Z91.040 Latex allergy status
CPT/HCPCS: 36415; 71046; 80053; 83880; 85025; 94640; 96374; 99283; J2930; J7040; 94644